=== PATIENT | male | born 1955 | race Two or more races ===

== ENCOUNTER 2019-04-26 13:00 | Outpatient (CLI) | payer OTHER | END 2019-04-26 14:45 | disposition home or self-care (01) | LOC: RAD 13:00 | DX: I11.9 Hypertensive heart disease without heart failure (principal); R06.02 Shortness of breath ==

== ENCOUNTER 2019-04-29 08:41 | Outpatient (CLI) | payer OTHER | END 2019-04-29 09:26 | disposition home or self-care (01) | LOC: NUCLEAR 08:41 | DX: I11.9 Hypertensive heart disease without heart failure (principal) ==